=== PATIENT | male | born 1995 | race Caucasian/White ===

== ENCOUNTER 2024-02-14 16:26 | Emergency (ER) | payer OTHER, SELFPAY ==
[2024-02-14] MEDS ORDERED: Ibuprofen 200 MG TAB ONE (16:50)
[2024-02-14] MEDS ORDERED: Loratadine 10 MG TAB PO SCH (17:00)
== END 2024-02-14 17:20 | disposition home or self-care (01) ==
LOC: BURERS 16:26
DX: T63.441A Toxic effect of venom of bees, accidental (unintentional), initial encounter (principal); F17.220 Nicotine dependence, chewing tobacco, uncomplicated
CPT/HCPCS: 99283